=== PATIENT | male | born 1970 | race Caucasian/White ===

== ENCOUNTER 2021-01-02 02:25 | Inpatient (IN) ==
[2021-01-02] MEDS ORDERED: EPINEPHrine 1 MG/ML VIAL ONE (02:41)
[2021-01-02] MEDS ORDERED: methylPREDNISolone 125 MG/2 ML VIAL ONE (02:41)
[2021-01-02] MEDS ORDERED: Famotidine 20 MG/2 ML VIAL ONE (02:43)
[2021-01-02] MEDS ORDERED: 0.9 % Sodium Chloride 1,000 ML ONE (02:54)
[2021-01-02] MEDS ORDERED: methylPREDNISolone 125 MG/2 ML VIAL IVP ONE (03:00)
[2021-01-02] MEDS ORDERED: 0.9 % Sodium Chloride 1,000 ML IVC ONE (03:00)
[2021-01-02] MEDS ORDERED: Famotidine 20 MG/2 ML VIAL IVP ONE (03:01)
[2021-01-02] MEDS ORDERED: EPINEPHrine 1 MG/ML VIAL IM ONE (03:02)
[2021-01-02 03:48] LABS: Hemoglobin 15.1 g/dL (12.9-16.9); Immature Granulocytes % 0.4 % (0-4); Red Cell Distribution Width 12.6 % (11.5-14.5)
[2021-01-02 03:50] LABS: Basophils % 0.4 %; Eosinophils # 0.2 K/mcL (0.0-0.6); Eosinophils % 2.5 %; Hematocrit 46.4 % (37.5-50.1); Immature Platelets 6.7 % (1.1-6.1); Lymphocytes # 4.8 K/mcL (0.6-4.6); Lymphocytes % 49.7 %; Mean Corpuscular HGB Conc 32.5 g/dL (31.6-35.5); Mean Corpuscular Hemoglobin 29.5 pg (28.0-33.3); Mean Corpuscular Volume 90.8 fL (83.0-100.0); Mean Platelet Volume 10.9 fL (9.4-12.4); Monocytes % 10.8 %; Neutrophils # 3.5 K/mcL (1.6-8.9); Red Blood Count 5.11 M/mcL (4.19-5.50); Segmented Neutrophils % 36.2 %; White Blood Count 9.6 K/mcL (4.3-11.1)
[2021-01-02 03:51] LABS: Platelet Count 99 K/mcL (140-400)
[2021-01-02 04:07] LABS: BUN/Creatinine Ratio 14 (6-26); Blood Urea Nitrogen 18 mg/dL (6-20); Calcium 7.8 mg/dL (8.6-10.3); Carbon Dioxide 18 mEq/L (23-29); Chloride 111 mEq/L (98-107); Glucose 167 mg/dL (70-105); Osmolality,Calculated 294 (280-300); Potassium 3.8 mEq/L (3.5-5.1); Sodium 139 mEq/L (136-145); Troponin I 0.07 ng/mL (< 0.04); eGFR For African Americans > 60 (> 60); eGFR For Non-African Americans 60 (> 60)
[2021-01-02] MEDS ORDERED: 0.9 % Sodium Chloride 1,000 ML IV ONE (04:13)
[2021-01-02] MEDS ORDERED: Ondansetron 4 MG/2 ML VIAL IVP PRN (07:55)
[2021-01-02] MEDS ORDERED: Acetaminophen 325 MG TABLET PO PRN (07:55)
[2021-01-02] MEDS ORDERED: Naloxone 0.4 MG/ML INJ IVP PRN (07:55)
[2021-01-02] MEDS ORDERED: Perflutren Lipid Microsphere 1.3 ML in 0.9 % Sodium Chloride 8.7 ML IVP PRN (08:30)
[2021-01-02] MEDS ORDERED: *HR* Heparin 5,000 UNIT/ML VIAL IVP ONE (08:30)
[2021-01-02] MEDS ORDERED: *HR* Heparin 5,000 UNIT/ML VIAL IVP PRN ×2 (08:30)
[2021-01-02 10:27] LABS: Amphetamine Screen,Urine Positive ng/mL (Cutoff=1000); Barbiturate Screen,Urine Negative ng/mL (Cutoff=200); Benzodiazepines Screen,Urine Negative ng/mL (Cutoff=200); Cannabinoid Screen,Urine Positive ng/mL (Cutoff = 50); Cocaine Screen,Urine Negative ng/mL (Cutoff= 300); Opiate Screen,Urine Negative ng/mL (Cutoff=300); Phencyclidine Screen,Urine Negative ng/mL (Cutoff=25)
[2021-01-02 11:02] LABS: Basophils % 0.1 %; Hematocrit 45.7 % (37.5-50.1); Hemoglobin 15.1 g/dL (12.9-16.9); Immature Granulocytes % 0.4 % (0-4); Lymphocytes # 0.5 K/mcL (0.6-4.6); Lymphocytes % 7.6 %; Mean Corpuscular Hemoglobin 29.1 pg (28.0-33.3); Mean Corpuscular Volume 88.1 fL (83.0-100.0); Mean Platelet Volume 9.6 fL (9.4-12.4); Monocytes # 0.1 K/mcL (0.0-1.3); Monocytes % 1.3 %; Platelet Count 205 K/mcL (140-400); Red Blood Count 5.19 M/mcL (4.19-5.50); Red Cell Distribution Width 12.4 % (11.5-14.5); Segmented Neutrophils % 90.6 %; White Blood Count 6.7 K/mcL (4.3-11.1)
[2021-01-02 11:07] LABS: INR 1.1; Prothrombin Time 12.5 Seconds (9.4-12.1)
[2021-01-02 11:10] LABS: Heparin anti-factor XA UFH < 0.04 IU/mL (0.30-0.70)
[2021-01-02] MEDS: Aspirin Enteric Coated 81 MG Tablet PO SCH (11:19)
[2021-01-02] MEDS: Heparin 25,000UNIT/250ML 1/2NS 25,000 UNIT/250 ML IV.SOLN IVC SCH (11:21)
[2021-01-02 12:24] LABS: Chol/HDL Ratio 1.6 (0-4.9)
[2021-01-02] MEDS: Fluticasone Propionate Nasal 50 MCG/SPRAY BOTTLE NS SCH (14:31)
[2021-01-02] MEDS: QUEtiapine Fumarate 25 MG TABLET PO SCH (21:26)
[2021-01-02] MEDS: Divalproex (24 HR) 250 MG TABLET PO SCH (21:26)
[2021-01-03 04:21] LABS: Basophils % 0.3 %; Eosinophils % 0.2 %; Hemoglobin 14.4 g/dL (12.9-16.9); Immature Granulocytes % 0.4 % (0-4); Lymphocytes # 2.6 K/mcL (0.6-4.6); Lymphocytes % 19.1 %; Mean Corpuscular HGB Conc 33.5 g/dL (31.6-35.5); Mean Corpuscular Hemoglobin 29.5 pg (28.0-33.3); Mean Corpuscular Volume 88.1 fL (83.0-100.0); Mean Platelet Volume 9.8 fL (9.4-12.4); Monocytes % 6.9 %; Platelet Count 206 K/mcL (140-400); Red Blood Count 4.88 M/mcL (4.19-5.50); Red Cell Distribution Width 12.5 % (11.5-14.5); Segmented Neutrophils % 73.1 %
[2021-01-03 04:22] LABS: White Blood Count 13.7 K/mcL (4.3-11.1)
[2021-01-03 04:44] LABS: BUN/Creatinine Ratio 11 (6-26); Blood Urea Nitrogen 13 mg/dL (6-20); Calcium 8.6 mg/dL (8.6-10.3); Carbon Dioxide 25 mEq/L (23-29); Chloride 110 mEq/L (98-107); Glucose 113 mg/dL (70-105); Magnesium 2.1 mg/dL (1.6-2.6); Osmolality,Calculated 293 (280-300); Phosphorous 3.6 mg/dL (2.7-4.5); Potassium 3.8 mEq/L (3.5-5.1); Sodium 141 mEq/L (136-145); eGFR For African Americans > 60 (> 60); eGFR For Non-African Americans > 60 (> 60)
[2021-01-03 04:55] LABS: Troponin I 1.07 ng/mL (< 0.04)
[2021-01-03] MEDS ORDERED: *HR* Enoxaparin 40 MG/0.4 ML SYRINGE SQ SCH (06:00)
[2021-01-03] MEDS: Aspirin Enteric Coated 81 MG Tablet PO SCH (08:29)
[2021-01-03] MEDS: Fluticasone Propionate Nasal 50 MCG/SPRAY BOTTLE NS SCH (08:34)
[2021-01-03] MEDS: Heparin 25,000UNIT/250ML 1/2NS 25,000 UNIT/250 ML IV.SOLN IVC SCH (12:53)
[2021-01-03] MEDS: carvediloL 6.25 MG TABLET PO SCH (17:21)
[2021-01-03] MEDS: QUEtiapine Fumarate 25 MG TABLET PO SCH (21:21)
[2021-01-03] MEDS: Divalproex (24 HR) 250 MG TABLET PO SCH (21:21)
[2021-01-04 07:01] LABS: Hematocrit 46.6 % (37.5-50.1); Hemoglobin 15.2 g/dL (12.9-16.9); Mean Corpuscular HGB Conc 32.6 g/dL (31.6-35.5); Mean Corpuscular Hemoglobin 29.6 pg (28.0-33.3); Mean Corpuscular Volume 90.8 fL (83.0-100.0); Platelet Count 219 K/mcL (140-400); Red Blood Count 5.13 M/mcL (4.19-5.50); Red Cell Distribution Width 12.7 % (11.5-14.5)
[2021-01-04 07:10] LABS: BUN/Creatinine Ratio 17 (6-26); Blood Urea Nitrogen 21 mg/dL (6-20); Calcium 8.6 mg/dL (8.6-10.3); Carbon Dioxide 29 mEq/L (23-29); Chloride 107 mEq/L (98-107); Glucose 99 mg/dL (70-105); Magnesium 2.1 mg/dL (1.6-2.6); Osmolality,Calculated 293 (280-300); Phosphorous 3.5 mg/dL (2.7-4.5); Potassium 4.3 mEq/L (3.5-5.1); Sodium 140 mEq/L (136-145); eGFR For African Americans > 60 (> 60); eGFR For Non-African Americans > 60 (> 60)
[2021-01-04] MEDS: carvediloL 6.25 MG TABLET PO SCH (09:45)
[2021-01-04] MEDS: Aspirin Enteric Coated 81 MG Tablet PO SCH (09:45)
[2021-01-04] MEDS: Fluticasone Propionate Nasal 50 MCG/SPRAY BOTTLE NS SCH (09:46)
[2021-01-04 10:42] VITALS: BP 114/70
== END 2021-01-04 13:03 | disposition home or self-care (01) | DRG 385 ==
LOC: 2NENU 02:25 → EMEROOARM 02:25 → SUATTDRO 07:11 → 2NENU 08:01 → SUATTDRO 01-03 21:15
PROVIDERS: ADMIT Internal Medicine; ATTEND Student in an Organized Health Care Education/Training Program